=== PATIENT | female | born 1935 | race Caucasian/White ===

== ENCOUNTER 2022-11-21 06:36 | Emergency (ER) | payer MEDICARE ==
[2022-11-21] MEDS ORDERED: Ketorolac 30 MG/ML SDV IM ONE (07:23)
== END 2022-11-21 07:37 | disposition home or self-care (01) ==
LOC: JP.ED 06:36
DX: R07.89 Other chest pain (principal); E78.00 Pure hypercholesterolemia, unspecified; I10 Essential (primary) hypertension; Z79.899 Other long term (current) drug therapy; W01.198A Fall on same level from slipping, tripping and stumbling with subsequent striking against other object, initial encounter
CPT/HCPCS: 96372; 99283; J1885